=== PATIENT | female | born 1960 | race Caucasian/White ===

== ENCOUNTER 2023-12-07 17:27 | Emergency (ER) | payer MEDICARE ==
[2023-12-07] MEDS: Acetaminophen 500 MG Tab PO ONE (18:03)
[2023-12-07] MEDS: Amoxicillin/Clavulanate K 875-125 MG Tab PO ONE (18:03)
[2023-12-07] MEDS: Lidocaine 4% 1 each Patch TOP STA (18:04)
== END 2023-12-07 22:25 | disposition home or self-care (01) ==
LOC: MW.ED 17:27
DX: R07.81 Pleurodynia (principal); H66.91 Otitis media, unspecified, right ear; E78.00 Pure hypercholesterolemia, unspecified; Z79.899 Other long term (current) drug therapy; Z88.5 Allergy status to narcotic agent; Z88.2 Allergy status to sulfonamides
CPT/HCPCS: 71045; 71100; 99283; A9270